=== PATIENT | female | born 1960 | race Caucasian/White ===

== ENCOUNTER 2017-12-04 12:27 | Outpatient (CLI) | payer MEDICARE, BC ==
--- NOTE | 2017-12-11 13:56 | PFT ---
PATIENT HISTORY: HEIGHT: 60IN WEIGHT: 120 SMOKER: NO HOW LONG: NA PACKS PER DAY : NA PRODUCTIVE COUGH: NO LUNG DISEASE: PHYSICIAN INTERPRETATION FINAL REPORT: FEV1 1.62 liters, 84% predicted, FVC is 2.26 liters, 86% predicted. Dlco 15.32 86% predicted. IMPRESSION: Mildly diminished FEV1 and FVC. No evidence of airway obstruction. Normal gas exchange Electrochemist: Account Development Executive: ALICIA HANKINS
== END 2017-12-04 12:28 | disposition home or self-care (01) ==
LOC: CP 12:27
PROVIDERS: ATTEND Internal Medicine Critical Care Medicine
DX: J84.10 Pulmonary fibrosis, unspecified (principal)
CPT/HCPCS: 94010; 94729

== ENCOUNTER 2018-04-17 15:10 | Outpatient (CLI) | payer MEDICARE, BC | END 2018-04-17 15:11 | disposition home or self-care (01) | LOC: BICMAMMO 15:10 | DX: Z12.31 Encounter for screening mammogram for malignant neoplasm of breast (principal) | CPT/HCPCS: 77063; 77067 ==

== ENCOUNTER 2018-06-04 12:29 | Outpatient (CLI) | payer MEDICARE, BC | END 2018-06-04 12:30 | disposition home or self-care (01) | LOC: CP 12:29 | PROVIDERS: ATTEND Internal Medicine Critical Care Medicine | DX: J84.10 Pulmonary fibrosis, unspecified (principal) | CPT/HCPCS: 94010; 94727; 94729 ==

== ENCOUNTER 2019-05-06 13:43 | Outpatient (CLI) | payer MEDICARE, BC | END 2019-05-06 13:44 | disposition home or self-care (01) | LOC: CP 13:43 | PROVIDERS: ATTEND Internal Medicine Critical Care Medicine | DX: R06.00 Dyspnea, unspecified (principal) | CPT/HCPCS: 94010 ==

== ENCOUNTER 2021-05-16 11:45 | Outpatient (CLI) | payer MEDICARE, BC | END 2021-05-16 11:46 | disposition home or self-care (01) | LOC: BICMAMMO 11:45 | PROVIDERS: ATTEND Family Medicine | DX: Z12.31 Encounter for screening mammogram for malignant neoplasm of breast (principal) | CPT/HCPCS: 77063; 77067 ==

== ENCOUNTER 2021-09-28 13:48 | Outpatient (CLI) | payer MEDICARE, BC | END 2021-09-28 13:49 | disposition home or self-care (01) | LOC: RAD 13:48 | PROVIDERS: ATTEND Internal Medicine Critical Care Medicine | DX: R06.00 Dyspnea, unspecified (principal) | CPT/HCPCS: 71046 ==

== ENCOUNTER 2022-03-26 13:17 | Outpatient (CLI) | payer MEDICARE, BC | END 2022-03-26 13:18 | disposition home or self-care (01) | LOC: RAD 13:17 | PROVIDERS: ATTEND Internal Medicine Critical Care Medicine | DX: R06.00 Dyspnea, unspecified (principal); I51.7 Cardiomegaly; J98.4 Other disorders of lung | CPT/HCPCS: 71046 ==

== ENCOUNTER 2022-05-24 13:02 | Outpatient (CLI) | payer MEDICARE, BC | END 2022-05-24 13:03 | disposition home or self-care (01) | LOC: BICMAMMO 13:02 | PROVIDERS: ATTEND Family Medicine | DX: Z12.31 Encounter for screening mammogram for malignant neoplasm of breast (principal); Z98.890 Other specified postprocedural states | CPT/HCPCS: 77063; 77067 ==

== ENCOUNTER 2023-02-25 13:09 | Outpatient (CLI) | payer MEDICARE, BC | END 2023-02-25 13:10 | disposition home or self-care (01) | LOC: RAD 13:09 | PROVIDERS: ATTEND Internal Medicine Critical Care Medicine | DX: R06.00 Dyspnea, unspecified (principal) | CPT/HCPCS: 71046 ==

== ENCOUNTER 2023-07-22 09:33 | Outpatient (CLI) | payer MEDICARE, BC | END 2023-07-22 09:34 | disposition home or self-care (01) | LOC: BICMAMMO 09:33 | PROVIDERS: ATTEND Family Medicine | DX: Z12.31 Encounter for screening mammogram for malignant neoplasm of breast (principal); Z98.890 Other specified postprocedural states | CPT/HCPCS: 77063; 77067 ==

== ENCOUNTER 2023-10-16 14:11 | Outpatient (CLI) | payer MEDICARE, BC | END 2023-10-16 14:12 | disposition home or self-care (01) | LOC: BICRAD 14:11 | PROVIDERS: ATTEND Podiatrist | DX: M79.671 Pain in right foot (principal); M72.2 Plantar fascial fibromatosis; M79.89 Other specified soft tissue disorders ==

== ENCOUNTER 2024-07-18 14:08 | Emergency (ER) | payer MEDICARE ==
[2024-07-18] MEDS ORDERED: Ketorolac Tromethamine 30 MG (1 mL) VIAL ONE (15:31)
[2024-07-18 15:54] LABS: #Basophils 0.04 10x3/uL (0.0-0.2); #Eosinophils Less than 0.03 10x3/uL (0.0-0.7); %Basophils 0.6 % (0.0-1.0); %Eosinophils 0.2 % (0.0-10.0); %Lymphocytes 17.2 % (21.0-51.0); %Monocytes 17.2 % (0.0-10.0); %Neutrophils 64.3 % (42.0-75.0); Hemoglobin 12.8 g/dL (12.0-16.0); Mean Corpuscular HGB CONC 32.8 g/dL (32.0-36.0); Mean Corpuscular Hemoglobin 33.3 pg (27.0-31.0); Mean Corpuscular Volume 101.6 fL (78.0-98.0); Mean Platelet Volume 9.5 fL (7.4-10.4); Platelet Count 302 10x3/uL (130-400); RBC Distribution Width 15.6 % (11.5-14.5); Red Blood Cell (RBC) Count 3.84 mill/uL (4.20-5.40)
[2024-07-18 16:12] LABS: ALT (SGPT) 11 U/L (8-55); AST (SGOT) 19 U/L (5-34); Albumin 3.8 g/dL (3.4-4.8); Alkaline Phosphatase 117 U/L (40-110); Anion Gap 14 mmol/L (10-20); BUN (Urea Nitrogen) 16 mg/dL (9.8-20.1); Bilirubin, Total 0.5 mg/dL (0.2-1.2); CK (CPK) 44 U/L (29-168); CRP,High Sensitivity (Inhouse) 0.23 mg/dL (< or = 0.5); Calc. Creatinine Clearance 0 mL/min (70-130); Calcium 8.8 mg/dL (7.8-10.44); Carbon Dioxide 21 mmol/L (23-31); Chloride 112 mmol/L (98-107); Estimated GFR 54; Globulin 3.2 g/dL (2.4-3.5); Glucose 83 mg/dL (80-115); Sodium 143 mmol/L (136-145)
== END 2024-07-18 17:33 | disposition home or self-care (01) ==
LOC: ERS 14:08
DX: M79.662 Pain in left lower leg (principal)
CPT/HCPCS: 73700; 80053; 82550; 83605; 85025; 86141; 87040; J1885; 36415; 96374

== ENCOUNTER 2024-08-05 08:00 | Outpatient (CLI) | payer MEDICARE | END 2024-08-05 08:01 | disposition home or self-care (01) | LOC: BICRAD 08:00 | PROVIDERS: ATTEND Internal Medicine Rheumatology | DX: M54.50 Low back pain, unspecified (principal); M79.604 Pain in right leg; M47.817 Spondylosis without myelopathy or radiculopathy, lumbosacral region; M41.86 Other forms of scoliosis, lumbar region | CPT/HCPCS: 72100 ==